=== PATIENT | male | born 1985 | race African-American/Black ===

== ENCOUNTER 2016-08-08 19:04 | Emergency (ER) | payer SELFPAY ==
[2016-08-08] MEDS ORDERED: KETOROLAC 60 MG/2 ML VIAL IM ONE (20:12)
[2016-08-08] MEDS ORDERED: LIDOCAINE/EPI 1% MDV 50 ML ONE (20:13)
== END 2016-08-08 21:19 | disposition home or self-care (01) ==
LOC: ER 19:04
DX: S90.121A Contusion of right lesser toe(s) without damage to nail, initial encounter (principal); L02.611 Cutaneous abscess of right foot; L03.031 Cellulitis of right toe; W22.8XXA Striking against or struck by other objects, initial encounter; Y92.513 Shop (commercial) as the place of occurrence of the external cause
CPT/HCPCS: 87071; 87077; 87186; 96372